=== PATIENT | female | born 2000 | race Two or more races ===

== ENCOUNTER 2022-10-11 10:02 | Inpatient (IN) | payer OTHER ==
[~2022-10-11] VITALS: Ht 165.1 cm; Wt 70.8 kg
[2022-10-11] MEDS ORDERED: PRENATAL TABLE1 EAC1 (10:27)
== END 2022-10-13 12:51 | disposition home or self-care (01) | DRG 807 ==
LOC: LDR 10:02 → OB/GYN 14:31
PROVIDERS: ADMIT Specialist; ATTEND Specialist
PROC: 10E0XZZ Delivery of Products of Conception, External Approach (ICD-10-PCS; principal; 2022-10-11)
PROC: 0HQ9XZZ Repair Perineum Skin, External Approach (ICD-10-PCS; 2022-10-11)
PROC: 4A1HXCZ Monitoring of Products of Conception, Cardiac Rate, External Approach (ICD-10-PCS; 2022-10-11)
DX: O70.0 First degree perineal laceration during delivery (principal); Z37.0 Single live birth; O99.824 Streptococcus B carrier state complicating childbirth; Z3A.38 38 weeks gestation of pregnancy; Z20.822 Contact with and (suspected) exposure to COVID-19

== ENCOUNTER 2024-01-03 13:45 | Inpatient (IN) | payer OTHER ==
[~2024-01-03] VITALS: Ht 162.6 cm; Wt 74.4 kg
[~2024-01-03 13:45] MED LIST: PRENATAL TABLE1 EAC1
[2024-01-12] MEDS ORDERED: OXYTOCIN 500 ML IV SCH (05:45)
[2024-01-12] MEDS ORDERED: RINGERS SOLUTION,LACTATED 1,000 ML IV SCH (05:45)
[2024-01-12 07:03] LABS: PH,URINE 6.5 (5.0-8.0); URINE APPEARANCE Clear; URINE BILIRRUBIN Negative (NEGATIVE); URINE COLOR Yellow; URINE GLUCOSE Negative (NEGATIVE); URINE KETONE Negative (NEGATIVE); URINE LEUKOCYTE Trace; URINE NITRATE Negative; URINE PROTEIN Negative (NEGATIVE)
[2024-01-12 07:05] LABS: HEMATOCRIT 31.6 % (36.0-45.00); HEMOGLOBIN 10.4 g/dL (12.0-15.00); MEAN CELL VOLUME 81.1 fL (80.00-100.00); MEAN CORPUSCULAR HEMOGLOBIN 26.8 pg (27.00-32.0); PLATELET COUNT 227 K/uL (150-450); RED BLOOD COUNT 3.89 M/uL (4.00-6.00); RED CELL DISTRIBUTION WIDTH 14.8 % (11.5-14.5)
[2024-01-12 07:07] LABS: URINE BACTERIA 4193.2 uL (0.0-1933); URINE EPITHELIAL CELLS 95.8 uL (0.0-38.8); URINE WBC 61.8 uL (0.0-23.2)
[2024-01-12 07:33] LABS: URINE BLOOD TRACES; URINE RBC 0.7 uL (0.0-20.8)
[2024-01-12 07:40] LABS: INR < 0.93; PARTIAL THROMBOPLASTIN TIME 27.7 SECONDS (22.0-34.0)
[2024-01-12 07:41] LABS: ALBUMIN 2.6 gm/dL (3.4-5.0); BILIRUBIN TOTAL 0.28 mg/dL (0.3-1.2); CREATININE SERUM 0.57 mg/dL (0.55-1.02); GFR 133.89; POTASSIUM 4.21 mEq/L (3.5-5.1); TOTAL PROTEIN 6.6 gm/dL (6.4-8.2)
[2024-01-12 08:11] LABS: PROTHROMBIN TIME 9.8 SECONDS (9.0-11.5)
[2024-01-12] MEDS ORDERED: PROMETHAZINE HCL 25 MG/ML AMPUL IV STA (08:50)
[2024-01-12] MEDS ORDERED: MEPERIDINE HCL/PF 50 MG/ML VIAL IV STA (08:50)
[2024-01-12] MEDS ORDERED: OXYTOCIN 20 UNITS/1000ML RL PIGGYBAG IV ONE (11:15)
[2024-01-12] MEDS ORDERED: ERYTHROMYCIN BASE 1 GM TUBE OP ONE (11:15)
[2024-01-12] MEDS ORDERED: CHLORHEXIDINE GLUCONATE 120 ML BOTTLE TOP ONE (11:15)
[2024-01-12] MEDS ORDERED: ACETAMINOPHEN 325 MG TABLET PO PRN (11:15)
[2024-01-12] MEDS ORDERED: OxyCODONE HCL/APAP UD (PERCOCET) PO PRN (11:15)
[2024-01-12] MEDS ORDERED: BENZOCAINE/MENTHOL 90 ML BOTTLE TOP SCH (17:00)
[2024-01-12] MEDS ORDERED: HYDROCORTISONE 2.5% 30 GM TUBE RECTAL SCH (17:00)
== END 2024-01-14 15:23 | disposition home or self-care (01) | DRG 807 ==
LOC: LDR 01-12 05:38 → OB/GYN 01-12 05:38 → LDR 01-13 13:45 → OB/GYN 01-14 15:23
PROVIDERS: ADMIT Specialist; ATTEND Specialist
PROC: 10E0XZZ Delivery of Products of Conception, External Approach (ICD-10-PCS; principal; 2024-01-12)
PROC: 4A1HXCZ Monitoring of Products of Conception, Cardiac Rate, External Approach (ICD-10-PCS; 2024-01-12)
DX: O80 Encounter for full-term uncomplicated delivery (principal); Z37.0 Single live birth; Z3A.39 39 weeks gestation of pregnancy; Z20.822 Contact with and (suspected) exposure to COVID-19